=== PATIENT | male | born 1950 | race African-American/Black ===

== ENCOUNTER → 2018-04-21 | Day surgery (SDC) | payer OTHER ==
[~2018-04-21] MED LIST: ATOR20TA58 PO; CITA40TA5 PO; DIAZEPAM10 MG PO; IV RINGERS,LACTATED 1000ML 1,000 ML IV SCH; LIDOCAINE 1% PF 2 ML VIAL. ID PRN; LOSA1TAB25 PO; MIDAZOLAM HCL/PF 2 MG/2 ML VIAL. IV PRN; PROPOFOL 40 ML IV ONE; ePHEDrine PF IN SALINE 50 MG/5 ML DISP.SYRIN IV ONE; fentaNYL PF VIAL 100 MCG/2 ML VIAL IV PRN
--- NOTE | 2018-04-21 08:10 | PDOC1 ---
HISTORY & PHYSICAL H&P see attached H&P from my office that is on the chart. BERONICA RAE MD Apr 21, 2018 08:10
[2018-04-21 08:25] VITALS: BP 152/78
== END | disposition home or self-care (01) ==
LOC: SURG 06:42
PROVIDERS: ATTEND Internal Medicine Gastroenterology
DX: Z12.11 Encounter for screening for malignant neoplasm of colon (principal); I10 Essential (primary) hypertension; E78.5 Hyperlipidemia, unspecified; F41.9 Anxiety disorder, unspecified; F32.9 Major depressive disorder, single episode, unspecified; Z87.891 Personal history of nicotine dependence; Z79.899 Other long term (current) drug therapy
CPT/HCPCS: 45378; J2704